=== PATIENT | female | born 1955 | race Native Hawaiian/Other Pacific Islander ===

== ENCOUNTER 2016-06-22 09:05 | Outpatient (CLI) | payer BC ==
--- NOTE | 2016-06-22 15:54 | Mammography Report ---
BILATERAL DIGITAL SCREENING MAMMOGRAM with CAD: 06/22/16 09:05:00 CLINICAL: Routine screening. COMPARISON:06/17/15 FINDINGS: The breasts are almost entirely fatty.Stable circumscribed left outer mass with a biopsy clip. No new mass, architectural distortion or suspicious calcifications. IMPRESSION: No mammographic evidence of malignancy. BI-RADS CATEGORY: 2 -- Benign RECOMMENDATION: Routine mammographic screening in one year. COMMENT: Patient follow-up letters are generated by our [employer] application.
== END 2016-06-22 09:06 | disposition home or self-care (01) ==
LOC: SPVWC 09:05
PROVIDERS: ATTEND Obstetrics & Gynecology
DX: Z12.31 Encounter for screening mammogram for malignant neoplasm of breast (principal)
CPT/HCPCS: 77067; G0202

== ENCOUNTER 2016-06-27 11:58 | Emergency (ER) | payer BC ==
[2016-06-27 12:11] VITALS: BP 146/76
--- NOTE | 2016-06-27 15:44 | Emergency Department Report ---
ED General Adult HPI - General Chief complaint: Wound/Laceration Stated complaint: PAIN/REDNESS LEFT BREAST Time Seen by Provider: 06/27/16 15:07 Source: outreach nurse Mode of arrival: Ambulatory Limitations: Language Barrier - History of Present Illness Initial comments: HPI interpreted by our own Mansi. Patient presents for eval of rash under her left breast. States had a little cut under left breast during mammogram exam 06/22/16 and was told to apply neosporin to cut. states started to get redness in area around cut x few days. Reports sensitivity to touch. Denies fever, chills, N/V/D, chest pain, SOB, weakness. Denies known allergies. Denies other acute complaints today. - Related Data Previous Rx's Medication Instructions Recorded Last Taken Type Cephalexin [Keflex] 500 mg PO Q12HR #14 cap 06/27/16 Unknown Rx Clotrimazole/Betamethasone 1 applicatio TP BID #1 tube 06/27/16 Unknown Rx [Lotrisone] Allergies Allergy/AdvReac Type Severity Reaction Status Date / Time No Known Allergies Allergy Unverified 06/27/16 12:11 ED Review of Systems ROS: Stated complaint: PAIN/REDNESS LEFT BREAST Other details as noted in HPI Comment: All other systems reviewed and negative ED Past Medical Hx - Medications Home Medications: Home Medications Medication Instructions Recorded Confirmed Last Taken Type Cephalexin [Keflex] 500 mg PO Q12HR #14 cap 06/27/16 Unknown Rx Clotrimazole/Betamethasone 1 applicatio TP BID #1 tube 06/27/16 Unknown Rx [Lotrisone] ED Physical Exam - General Limitations: Language Barrier General appearance: alert, in no apparent distress - Head Head exam: Present: atraumatic, normocephalic - Eye Eye exam: Present: normal appearance, PERRL, EOMI. Absent: scleral icterus, conjunctival injection, periorbital swelling, periorbital tenderness - Respiratory Respiratory exam: Present: normal lung sounds bilaterally. Absent: respiratory distress, wheezes, rales, rhonchi, stridor, chest wall tenderness, accessory muscle use, decreased breath sounds, prolonged expiratory - Cardiovascular Cardiovascular Exam: Present: regular rate, normal rhythm - GI/Abdominal GI/Abdominal exam: Present: soft. Absent: tenderness - Neurological Exam Neurological exam: Present: alert, oriented X3 - Psychiatric Psychiatric exam: Present: normal affect, normal mood - Skin Skin exam: Present: warm, dry, intact, rash (Erythematous plaque-like rash with very tiny pustular eruptions on intertriginous area under left breast. No drainage. No maceration. ) ED Course Vital Signs 06/27/16 12:02 Temperature 98.4 F Pulse Rate 82 Blood Pressure 146/76 O2 Sat by Pulse 97 Oximetry ED Medical Decision Making - Differential Diagnosis Dermatitis (intertrigo, cellulitis, allergic reaction). Critical care attestation.: If time is entered above; I have spent that time in minutes in the direct care of this critically ill patient, excluding procedure time. ED Disposition Clinical Impression: Intertrigo, Dermatitis Disposition: DISCHARGED TO HOME OR SELFCARE Is pt being admited?: No Does the pt Need Aspirin: No Condition: Stable Instructions: Cellulitis (ED) Prescriptions: Cephalexin [Keflex] 500 mg PO Q12HR #14 cap Clotrimazole/Betamethasone [Lotrisone] 1 applicatio TP BID #1 tube Referrals: PRIMARY MD ABELARDO [Primary Care Provider] - 2-3 Days GT HANDY MD [Staff Physician] - 3-5 Days
== END 2016-06-27 15:54 | disposition home or self-care (01) ==
LOC: ED 11:58
DX: L30.4 Erythema intertrigo (principal); L30.9 Dermatitis, unspecified
CPT/HCPCS: 99282

== ENCOUNTER 2017-06-29 09:48 | Outpatient (CLI) | payer OTHER ==
--- NOTE | 2017-06-30 11:36 | Mammography Report ---
BILATERAL DIGITAL SCREENING MAMMOGRAM with CAD: 06/29/17 09:48:00 CLINICAL: Routine screening. COMPARISON:06/22/16 FINDINGS: The breasts are almost entirely fatty.Stable oval left upper outer circumscribed 2.5 cm mass with a biopsy clip. No new mass, architectural distortion or suspicious calcifications. IMPRESSION: No mammographic evidence of malignancy. BI-RADS CATEGORY: 2 -- Benign RECOMMENDATION: Routine mammographic screening in one year. COMMENT: Patient follow-up letters are generated by our [employer] application.
== END 2017-06-29 09:49 | disposition home or self-care (01) ==
LOC: SPVWC 09:48
PROVIDERS: ATTEND Obstetrics & Gynecology
DX: Z12.31 Encounter for screening mammogram for malignant neoplasm of breast (principal)
CPT/HCPCS: 77067

== ENCOUNTER 2018-07-11 08:35 | Outpatient (CLI) | payer OTHER ==
--- NOTE | 2018-07-11 15:01 | Mammography Report ---
BILATERAL DIGITAL SCREENING MAMMOGRAM with CAD: 07/11/18 08:35:00 CLINICAL: Routine screening. A COMPARISON:06/29/17 FINDINGS: The breasts are mostly fatty. Stable oval left upper outer circumscribed 2.5 cm mass with the biopsy clip.A left upper outer benign intramammary lymph node. No new mass, architectural distortion or suspicious calcifications. IMPRESSION: No mammographic evidence of malignancy. BI-RADS CATEGORY: 2 -- Benign RECOMMENDATION: Routine mammographic screening in one year. COMMENT: Patient follow-up letters are generated by our [employer] application.
== END 2018-07-11 08:36 | disposition home or self-care (01) ==
LOC: SPVWC 08:35
PROVIDERS: ATTEND Obstetrics & Gynecology
DX: Z12.31 Encounter for screening mammogram for malignant neoplasm of breast (principal)
CPT/HCPCS: 77067

== ENCOUNTER 2018-11-28 09:57 | Outpatient (CLI) | payer OTHER ==
--- NOTE | 2018-11-28 10:44 | Cat Scan Report ---
CT HEAD WITHOUT CONTRAST: HISTORY: Acute memory loss. TECHNIQUE: Sequential 2.5mm CT images. COMPARISON: none. FINDINGS: Cerebral Parenchyma: Within normal limits. Cerebellum: Within normal limits. Brainstem: Within normal limits. Ventricles: Normal. Sella: Normal. Extra-axial spaces: Normal. Basal Cisterns: Normal. Intracranial Hemorrhage: None. Midline Shift: None. Calvarium: Normal. Sinuses: Normal. Mastoid Air Cells: Normal. Visualized Orbits: Normal. IMPRESSION: Cranial CT scan within normal limits.
== END 2018-11-28 09:58 | disposition home or self-care (01) ==
LOC: CT 09:57
PROVIDERS: ATTEND Internal Medicine
DX: R41.3 Other amnesia (principal)
CPT/HCPCS: 70450

== ENCOUNTER 2019-07-22 08:12 | Outpatient (CLI) | payer OTHER ==
--- NOTE | 2019-07-22 14:13 | Mammography Report ---
DIGITAL SCREENING MAMMOGRAM WITH CAD, 07/22/2019 INDICATION: Routine screening mammography. TECHNIQUE: Digital bilateral 2D mammography was obtained in the craniocaudal and mediolateral obliq ue projections. This examination was interpreted with the benefit of Computer-Aided Detection analysi s. COMPARISON: 07/11/2018 FINDINGS: Breast Density: The breasts are almost entirely fatty. There is no evidence of new mass, suspicious calcifications or architectural distortion in either kenny ast. A stable oval left outer circumscribed mass with a biopsy clip. IMPRESSION: No mammographic evidence of malignancy. Follow up recommendation: Routine yearly BI-RADS Category 2: Benign. A "normal" or negative report should not discourage follow up or biopsy of a clinically significant f inding. A written summary of these findings will be mailed to the patient. The patient will be entered into a mammography reporting system which will generate a reminder letter for the patient's next appointmen t at the appropriate interval. The [employer] recommends yearly mammograms starting at age 40 and continuing as l lexie as a woman is in good health. Breast MRI is recommended for women with an approximate 20-25% or greater lifetime risk of breast cancer, including women with a strong family history of breast or ova kevin cancer or who have been treated for Hodgkin's disease. Signer Name: Stephane Rowan MD Signed: 07/22/2019 2:08 PM Workstation Name: [id number]
== END 2019-07-22 08:13 | disposition home or self-care (01) ==
LOC: SPVWC 08:12
PROVIDERS: ATTEND Obstetrics & Gynecology
DX: N64.89 Other specified disorders of breast (principal); Z12.31 Encounter for screening mammogram for malignant neoplasm of breast
CPT/HCPCS: 77067

== ENCOUNTER 2021-05-12 10:27 | Outpatient (CLI) | payer OTHER ==
--- NOTE | 2021-05-12 15:42 | Short Stay Summary ---
Short Stay Documentation Date of service: 05/12/21 - History Principal diagnosis: left thyroid nodule - Allergies and Medications Current Medications: Allergies No Known Allergies Allergy (Unverified 06/27/16 12:11) Home Medications Medication Instructions Recorded Confirmed Last Taken Type Benazepril/Hydrochlorothiazide 1 tab PO DAILY 05/12/21 05/12/21 05/12/21 09:00 History [Benazepril-Hctz 20-12.5 mg Tab] - Physical exam General appearance: no acute distress HEENT: Other (palpable 3cm left thyroid nodule) - Brief post op/procedure progress note Date of procedure: 05/12/21 Pre-op diagnosis: left thyroid nodule Post-op diagnosis: same Procedure: US thyroid FNA and biopsy Anesthesia: local Findings: 3cm complex left thyroid nodule Surgeon: ROBERT HALL Estimated blood loss: none Pathology: list (FNA x 2, rotex biopsy) Specimen disposition: to lab Condition: stable - Hospital course Hospital course: uneventful - Disposition Condition at discharge: Good Disposition: 01 HOME / SELF CARE / HOMELESS Short Stay Discharge Plan Follow up with: ALMAZ HOYOS MD [Primary Care Provider] - 7 Days
[2021-05-12 16:43] VITALS: BP 123/65
--- NOTE | 2021-05-13 10:08 | Ultrasound Report ---
ULTRASOUND-GUIDED THYROID BIOPSY HISTORY: nontoxic goitor. Left thyroid nodule COMPARISON: Previous ultrasound report from an outlying facility was reviewed which recommended ultr asound-guided FNA/biopsy of an approximate 3 cm left thyroid lobe lesion. PROCEDURE: The risks (including but not limited to bleeding and infection) and benefits were explain ed to the patient and informed consent was obtained. The patient's daughter served as an grinding supervisor. A time out procedure was performed. The procedure site was prepped and draped in the usual sterile fashion and lidocaine was used for local anesthesia. Using ultrasound guidance, 2 fine-needle aspirations and one Rotex biopsy was obtained from a 2.7 x 2 .1 x 1.8 cm left thyroid lobe nodule with calcifications and mild hyperemia. The pathologist on site reviewed the samples and deemed them adequate for diagnosis. The patient tolerated the procedure well with no complications. IMPRESSION: Successful ultrasound-guided FNA and biopsy of the left thyroid lobe nodule. Signer Name: Willam Magallon Jr, MD Signed: 05/13/2021 10:03 AM Workstation Name: [id number]
== END 2021-05-12 16:35 | disposition home or self-care (01) ==
LOC: US 10:27
PROVIDERS: ATTEND Surgery
DX: E04.9 Nontoxic goiter, unspecified (principal); E07.9 Disorder of thyroid, unspecified; E04.1 Nontoxic single thyroid nodule
CPT/HCPCS: 10005; 60100; 76942; 88112; 88172; 88173

== ENCOUNTER 2021-05-25 11:26 | Outpatient (CLI) | payer OTHER ==
[2021-05-25 12:30] LABS: Free T4 (Free Thyroxine) 1.21 ng/dL (0.76-1.46)
== END 2021-05-25 11:27 | disposition home or self-care (01) ==
LOC: LAB 11:26
PROVIDERS: ATTEND Surgery
DX: E07.9 Disorder of thyroid, unspecified (principal)
CPT/HCPCS: 36415; 84439; 84443

== ENCOUNTER 2021-06-01 08:16 | Outpatient (CLI) | payer OTHER ==
--- NOTE | 2021-06-01 16:01 | Nuclear Medicine Report ---
Thyroid Scan HISTORY: DISORDER OF THYROID. History of left thyroid nodule with a biopsy in May of this year TECHNIQUE: Patient was given 291 uCi of I-123. COMPARISON: None FINDINGS: Diffuse thyroid uptake appears to be homogeneous with mild relative photopenia in the mid left pole region where there is a known large nodule. There is no hot nodule. IMPRESSION: Photopenic left midpole thyroid nodule. Correlate with FNA findings. Otherwise unremarka ble exam. Signer Name: Alex Stacy MD Signed: 06/01/2021 3:57 PM Workstation Name: [id number]
== END 2021-06-01 08:17 | disposition home or self-care (01) ==
LOC: NM 08:16
PROVIDERS: ATTEND Surgery
DX: E04.1 Nontoxic single thyroid nodule (principal); E07.9 Disorder of thyroid, unspecified
CPT/HCPCS: 78013; A9516

== ENCOUNTER 2021-06-15 09:48 | Outpatient (CLI) | payer OTHER, MEDICARE ==
[2021-06-15 10:41] LABS: Blood Urea Nitrogen 17 mg/dL (7-17)
--- NOTE | 2021-06-15 12:08 | Cat Scan Report ---
CT NECK WITH INTRAVENOUS CONTRAST AND MULTIPLANAR RECONSTRUCTION CLINICAL HISTORY: THYROID DISORDER 100 ML OMNI 300 TECHNIQUE: 2.5 mm thick contiguous axial scans were obtained from the skull base down to the aortic arch during intravenous contrast administration. In addition to evaluation of axial source images sagittal and co dian multiplanar reconstructions were produced and reviewed for this report. CONTRAST DOSE REPORT: Omnipaque 300: [address] imaging studies performed at this facility utilize dose modulation, iterative reconstruction o r weight based dosing, if appropriate, to obtain the lowest achievable radiation dose. COMPARISON: Thyroid scan 06/01/2021 FINDINGS: AIRWAY: No abnormalities are seen along the course of the airway. Nasopharynx, oropharynx, hypopharyn x, larynx and visualized portions of the subglottic airway all have an unremarkable appearance. LYMPH NODES: There is no indication of cervical lymphadenopathy. ORAL CAVITY/FLOOR OF MOUTH: No abnormalities are seen in evaluation of the oral cavity and tongue. Th e floor the mouth has a normal appearance. MAJOR SALIVARY GLANDS: The parotid and submandibular salivary glands have a normal appearance. NASAL CAVITY AND PARANASAL SINUSES: Evaluation of the nasal cavity reveals no abnormality. The [place] sinuses are free from inflammatory mucosal disease. ORBITS:No abnormalities of the visualized portions of the orbits are identified. Globes, optic nerves , extraocular muscles and lacrimal glands have an unremarkable appearance. THYROID GLAND: The thyroid gland is mildly enlarged. Right lobe of the thyroid gland measures about 6 .0 x 2.7 x 1.5 cm in overall dimension. Left lobe of thyroid gland measures about 5.3 x 2.2 x 2.7 cm in size. There is a calcified lesion in the lower pole of the left lobe of the thyroid gland. A 4 mm diameter low-attenuation lesion in the anterior aspect of the midpole of the left lobe of the thyroid gland likely represents a thyroid nodule or cyst. A similar but larger (13 x 9 x 9 mm) finding is pr esent in the upper pole of the right lobe of the thyroid gland. These lesions would be better charact erized with dedicated thyroid ultrasound. The right upper pole nodule or cyst correlates with area of decreased uptake on recent thyroid scan. TEMPORAL BONES:Mastoid air cells are normally pneumatized. CRANIOCERVICAL JUNCTION:No significant abnormality. CERVICAL SPINE: Evaluation of the cervical spine reveals no significant abnormality. Normal alignment is maintained. No significant degenerative changes are identified. LUNG APICES: Evaluation of the lung apices reveals no abnormality. There is no indication of lung nod ule or infiltrate. The visualized portions of the superior mediastinum have an unremarkable appearanc e. CONTRAST ADMINISTRATION: Enhancement of normal vascular structures is demonstrated. No areas of abnor mal contrast enhancement are identified. IMPRESSION: 1. Thyroid gland has an abnormal appearance as described in detail above. Consider correlation with d edicated thyroid ultrasound if not performed elsewhere. 2. No additional abnormalities are demonstrated on CT neck with intravenous contrast. Signer Name: Manny Motta MD Signed: 06/15/2021 12:04 PM Workstation Name: [id number]
== END 2021-06-15 09:49 | disposition home or self-care (01) ==
LOC: CT 09:48
PROVIDERS: ATTEND Surgery
DX: E07.9 Disorder of thyroid, unspecified (principal); E04.9 Nontoxic goiter, unspecified
CPT/HCPCS: 36415; 70491; 82565; 84520; Q9967